=== PATIENT | female | born 1990 ===

== ENCOUNTER 2023-01-09 13:11 | Emergency (ER) | payer SELFPAY ==
[~2023-01-09] VITALS: Ht 170.2 cm; Wt 116.0 kg
[2023-01-09 13:20] VITALS: BP 113/78
== END 2023-01-09 13:40 | disposition left against medical advice (07) ==
LOC: ER 13:11
DX: O26.892 Other specified pregnancy related conditions, second trimester (principal); R42 Dizziness and giddiness; R20.2 Paresthesia of skin; O16.2 Unspecified maternal hypertension, second trimester; O24.912 Unspecified diabetes mellitus in pregnancy, second trimester; Z3A.16 16 weeks gestation of pregnancy; Z98.890 Other specified postprocedural states
CPT/HCPCS: 82962